=== PATIENT | male | born 1960 | race African-American/Black ===

== ENCOUNTER 2019-06-16 07:47 | Day surgery (SDC) | payer BC ==
[2019-06-11 15:29] VITALS: BMI 34.5
[2019-06-16] MEDS ORDERED: oxyCODONE HCL 10 MG SUSTAINED ACTING TABLET PO ONE (08:18)
[2019-06-16] MEDS ORDERED: BUPIVACAINE HCL/PF 0.5% (5 MG/ML) 30 ML VIAL IJ ONE (10:04)
[2019-06-16] MEDS ORDERED: MIDAZOLAM HCL 2 MG/2 ML SINGLE DOSE VIAL ONE (10:04)
[2019-06-16] MEDS ORDERED: fentaNYL CITRATE 250 MCG/5 ML VIAL ONE (10:35)
--- NOTE | 2019-06-16 10:43 | HP ---
History & Physical Update - History History: No Change - Physical Physical: No Change - Assessment Assessment: No Change - Plan Plan: No Change
[2019-06-16] MEDS ORDERED: methylPREDNISolone ACET (DEPO) 40 MG/1 ML VIAL ONE (10:45)
[2019-06-16] MEDS ORDERED: GUM MASTIC/STORAX/MSAL/ALCOHOL 1 DRP DROPSBTL MC ONE (10:45)
[2019-06-16] MEDS ORDERED: LIDOCAINE 1%/EPI 1:100000 (20 ML MULTI DOSE VIAL) ONE (10:45)
[2019-06-16] MEDS ORDERED: ONDANSETRON 4 MG/2 ML VIAL ONE (11:53)
[2019-06-16] MEDS ORDERED: DEXAMETHASONE SOD PHOSPHATE 4 MG/1 ML VIAL ONE (11:53)
[2019-06-16] MEDS ORDERED: ceFAZolin SODIUM 1 GM VIAL ONE (11:53)
[2019-06-16] MEDS ORDERED: LIDOCAINE 1%/EPI 1:100000 (20 ML MULTI DOSE VIAL) INF ONE (11:55)
[2019-06-16] MEDS ORDERED: methylPREDNISolone ACET (DEPO) 40 MG/1 ML VIAL IM ONE ×2 (12:07→12:56)
--- NOTE | 2019-06-16 13:32 | OP ---
Operative Note - Note: Operative Date: 06/16/19 Pre-Operative Diagnosis: spinal stenosis Operation: lamiectomy of L3-4 and L4-5 Surgeon: Calixto Lee Welding Rod Coater: Eladia Barnes Anesthesiologist/TIE FASTENER: Syd Marsh Anesthesia: Spinal Estimated Blood Loss (mls): 20 Fluid Volume Replaced (mls): 1,000 Operative Report Dictated: Yes
--- NOTE | 2019-06-16 13:33 | SURG ---
Surgery Acute Care Assistant Note Acute Care Assistant: Eladia Barnes PA-C Date of Service: 06/16/19 Diagnosis: spinal stenosis Procedure: lamiectomy of L3-4 and L4-5 I was present for the entirety of the operative procedure. For further detail, please refer to operative report. Visit type - Case Type Case Type: Scheduled - Emergency Emergency Visit: No - New patient This patient is new to me today: Yes Date on this admission: 06/16/19
[2019-06-16] MEDS ORDERED: ACETAMINOPHEN 1000 MG/100 ML VIAL (NON FORMULARY) IVPB ONE (13:36)
[2019-06-16] MEDS ORDERED: oxyCODONE HCL 5 MG TABLET PO PRN (13:36)
[2019-06-16] MEDS ORDERED: ONDANSETRON 4 MG/2 ML VIAL IVPUSH PRN (13:36)
[2019-06-16] MEDS ORDERED: LACTATED RINGERS SOLUTION 1,000 ML IV SCH (13:45)
[2019-06-16 15:04] VITALS: TEMP 98.2
[2019-06-16 17:37] VITALS: BP 127/78; PULSE 58
--- NOTE | 2019-06-16 20:38 | OP ---
DATE OF OPERATION: 06/16/2019 PREOPERATIVE DIAGNOSIS: Spinal stenosis, L3-L4, L4-L5. POSTOPERATIVE DIAGNOSIS: Spinal stenosis, L3-L4, L4-L5. PROCEDURE PERFORMED: Laminectomy, L3-L4, L4-L5. SURGEON: Calixto Lee MD. DEVULCANIZER TENDER: DUKE Morse. ESTIMATED BLOOD LOSS: 50 mL INTRAVENOUS FLUIDS: Per anesthesia. ANESTHESIA: Spinal/TLIP. COMPLICATIONS: There were none. DISPOSITION: Patient brought to the PACU in stable condition. INDICATION FOR SURGERY: The patient is a 58-year-old gent who has been suffering from pain from his back down his legs. X-rays and MRI were completed, which showed a spinal stenosis from L3 down to L5. He had gone through an exhaustive course of treatment for this which included medications, physical therapy, as well as injections. Unfortunately, his pain continued to persist in spite of all this. At this point, risks, benefits, and alternatives were discussed, and the patient consented to surgery. OPERATIVE NOTE: Patient is brought to the operating room by the anesthesia staff. After appropriate patient identification is performed, spinal anesthesia was given. TLIP block was given. The patient was able to position himself prone onto the OR with all areas of bony prominences well padded at this time. Two needles were placed into his back to ariana off the L3-L5 segments, and x-ray is taken to confirm this is correct. Toughkenamon were removed, and 10 mL of lidocaine with epinephrine was injected into his back at this time. His back was prepped and draped in a sterile manner. At this point timeout was completed. An incision was made from the top of L3 down to the bottom of L5. Dissection was carried down to the fascia. Fascia was then opened at this time, and retractors were placed in. Then a spinal needle was placed onto the L4 lamina to ariana off the L4-L5 level. An x-ray was taken to confirm this was correct. The needle was removed, and the interspinous ligament at L3-L4 and L4- L5 was removed. The spinous process of L4 is removed, the lamina of L4 is removed , a complete decompression was performed such that by the end of the procedure the L4 and L5 nerve roots appeared to be well decompressed. All bleeding was well controlled at this time. Steroids were placed over the nerve root, Floseal was placed over that. The fascia was closed with a number 1 Vicryl suture. The subcutaneous tissue was closed with 2-0 Vicryl suture. Skin was closed with 3-0 Monocryl suture. Dermabond was applied. Steri-Strips were applied. Sterile dressing was applied. Patient was placed supine on OR bed, and brought to the PACU in stable condition. CALIXTO LEE M.D. [id number] MTDD
== END 2019-06-16 17:25 | disposition home or self-care (01) ==
LOC: FASU 07:47
PROVIDERS: ATTEND Orthopaedic Surgery Orthopaedic Surgery of the Spine
PROC: 01NB0ZZ Release Lumbar Nerve, Open Approach (ICD-10-PCS; principal; 2019-06-16 12:02)
DX: M48.061 Spinal stenosis, lumbar region without neurogenic claudication (principal)
CPT/HCPCS: 72100-TC-FY; 76000-TC-FY; 82962; 94760; J0131